=== PATIENT | female | born 1940 | race Caucasian/White ===

== ENCOUNTER 2017-09-19 16:13 | Inpatient (IN) | payer OTHER ==
[~2017-09-19] VITALS: Ht 182.9 cm; Wt 64.0 kg
[2017-09-19 17:36] LABS: HEMATOCRIT 37.5 % (36.0-46.0); HEMOGLOBIN 11.5 G/DL (11.9-15.5); MCH 26.7 PG (29.0-34.0); MCHC 30.7 G/DL (30.0-36.0); MCV 87.2 FL (83-99); PLATELET COUNT 252 K/uL (156-360); RBC DIS.WIDTH-CV 15.3 % (11.8-14.6); RBC DIS.WIDTH-SD 48.8 % (39-53); WHITE BLOOD COUNT 7.5 K/uL (4.1-10.2)
[2017-09-19 17:49] LABS: CHLORIDE 96 mEq/L (99-109); POTASSIUM 3.8 mEq/L (3.7-5.4); SODIUM 138 mEq/L (136-147)
[2017-09-19 17:51] LABS: GLUCOSE 160 mg/dL (70-99)
[2017-09-19 17:55] LABS: CREATININE 0.6 mg/dL (0.6-1.3); GFR ESTIMATE (CALCULATED) > 59 mL/min/
[2017-09-19 17:56] LABS: UREA NITROGEN (BUN) 13 mg/dL (9-23)
[2017-09-19 17:57] LABS: TROP-I INTERPRETATION NEGATIVE; TROPONIN-I < 0.01 ng/mL (0.0-0.30)
[2017-09-19] MEDS ORDERED: ATHENOL325 MG PO (22:28)
[2017-09-19] MEDS ORDERED: ALIGN10.5 MG PO (22:29)
[2017-09-19] MEDS ORDERED: XANAX0.5 MG PO (22:30)
[2017-09-19] MEDS ORDERED: BROVANA15 MCG/2 M IH (22:32)
[2017-09-19] MEDS ORDERED: PULMICORT0.5 MG/21 IH (22:34)
[2017-09-19] MEDS ORDERED: ROCEPHIN1000 MG IM (22:35)
[2017-09-19] MEDS ORDERED: FLONASE16 G1 BOTH NARES (22:38)
[2017-09-19] MEDS ORDERED: LEVALBUTEROL TA15 GM IH (22:39)
[2017-09-19] MEDS ORDERED: XYLOCAINE IJ (22:43)
[2017-09-19] MEDS ORDERED: MAGNESIUM400 M1 PO (22:44)
[2017-09-19] MEDS ORDERED: REGLAN5 MG PO (22:46)
[2017-09-19] MEDS ORDERED: MUCINEX600 MG PO (22:46)
[2017-09-19] MEDS ORDERED: SPIRIVA RESPIMAT4 GM IH (22:47)
[2017-09-19] MEDS ORDERED: TRAMADOL HCL50 MG PO (22:48)
[2017-09-19] MEDS ORDERED: WELCHOL625 MG PO (22:50)
[2017-09-19] MEDS ORDERED: NITROSTAT0.4 MG SL (22:51)
[2017-09-19] MEDS ORDERED: METOPROLOL PO (23:02)
[2017-09-20] VITALS (20 sets, daily range): BP systolic 71–145; BP diastolic 44–92
[2017-09-20 00:34] LABS: BICARBONATE 35.3 mEq/L (22-26); CARBOXY HGB 0.1 % (0-5); METHEMOGLOBIN 0 % (0-1.5); PCO2 64 mm Hg (35-45); PO2 65 mm Hg (80-100); pH 7.35 (7.35-7.45)
[2017-09-20 00:35] LABS: CONTINUOUS POS AIRWAY PRESSURE 6 cm H2O; DEVICE 840; FI02 40 %; MODE SPONT; PRES. SUPPORT 14 CM/H2O; SITE RR; TOTAL RESP RATE 23 resp/min
[2017-09-20 04:45] LABS: BASE EXCESS 9.4 mEq/L (-3 to +3); BICARBONATE 36.7 mEq/L (22-26); CARBOXY HGB 0 % (0-5); METHEMOGLOBIN 0 % (0-1.5); PCO2 65 mm Hg (35-45); PO2 62 mm Hg (80-100); pH 7.36 (7.35-7.45)
[2017-09-20 04:46] LABS: COMMENTS - BLOOD GASES C+; DEVICE NC; O2 FLOW 2 L/MIN; SITE LB; TOTAL RESP RATE 34 resp/min
[2017-09-20 06:09] LABS: HEMATOCRIT 36.9 % (36.0-46.0); HEMOGLOBIN 11.3 G/DL (11.9-15.5); MCHC 30.6 G/DL (30.0-36.0); MCV 88.3 FL (83-99); PLATELET COUNT 263 K/uL (156-360); RBC DIS.WIDTH-CV 15.4 % (11.8-14.6); RBC DIS.WIDTH-SD 49.4 % (39-53); RED BLOOD COUNT 4.18 M/uL (3.80-5.20); WHITE BLOOD COUNT 6.1 K/uL (4.1-10.2)
[2017-09-20 06:26] LABS: CHLORIDE 98 MEQ/L (99-109); CREATININE 0.4 MG/DL (0.6-1.3); GFR ESTIMATE (CALCULATED) > 59 mL/min/; GLUCOSE 133 mg/dL (70-99); POTASSIUM 3.7 MEQ/L (3.7-5.4); SODIUM 141 MEQ/L (136-147); UREA NITROGEN (BUN) 11 mg/dL (9-23)
[2017-09-20 11:52] LABS: BICARBONATE 32.5 mEq/L (22-26); CARBOXY HGB 0 % (0-5); COMMENTS - BLOOD GASES A+C+; DEVICE VENT; FI02 70 %; MECHANICAL RATE 10 resp/min; METHEMOGLOBIN 0 % (0-1.5); MODE ACVC; PCO2 63 mm Hg (35-45); PEEP 8 CM/H20; PO2 240 mm Hg (80-100); SITE LR; TIDAL VOLUME 500 ML; TOTAL RESP RATE 10 resp/min; pH 7.32 (7.35-7.45)
[2017-09-20 15:27] LABS: PHOSPHORUS 4.1 mg/dL (2.5-4.9)
[2017-09-21] VITALS (22 sets, daily range): BP systolic 0–151; BP diastolic 0–69
[2017-09-21 05:09] LABS: HEMATOCRIT 34.9 % (36.0-46.0); HEMOGLOBIN 10.5 G/DL (11.9-15.5); MCH 26.3 PG (29.0-34.0); MCHC 30.1 G/DL (30.0-36.0); MCV 87.3 FL (83-99); PLATELET COUNT 215 K/uL (156-360); RBC DIS.WIDTH-SD 48.5 % (39-53); WHITE BLOOD COUNT 5.3 K/uL (4.1-10.2)
[2017-09-21 05:27] LABS: CHLORIDE 105 mEq/L (99-109); SODIUM 142 mEq/L (136-147)
[2017-09-21 05:29] LABS: GLUCOSE 203 mg/dL (70-99)
[2017-09-21 05:33] LABS: CREATININE 0.5 mg/dL (0.6-1.3); GFR ESTIMATE (CALCULATED) > 59 mL/min/; UREA NITROGEN (BUN) 20 mg/dL (9-23)
[2017-09-21 15:34] LABS: APPEARANCE CLEAR ((CLEAR)); BILIRUBIN NEGATIVE; BLOOD NEGATIVE; COLOR YELLOW ((YELLOW)); GLUCOSE (STRIP) >=500; KETONES NEGATIVE; LEUKOCYTES NEGATIVE; NITRITE NEGATIVE; PROTEIN (STRIP) 30; SPECIFIC GRAVITY 1.029 (1.000-1.030); UCUL ADDED? NO; UROBILINOGEN 0.2 MG/DL (0.2-1.0)
[2017-09-22] VITALS (20 sets, daily range): BP systolic 100–170; BP diastolic 40–111
[2017-09-22 05:26] LABS: BASE EXCESS 6.7 mEq/L (-3 to +3); BICARBONATE 33.7 mEq/L (22-26); CARBOXY HGB 0 % (0-5); METHEMOGLOBIN 0 % (0-1.5); PCO2 61 mm Hg (35-45); pH 7.35 (7.35-7.45)
[2017-09-22 05:27] LABS: COMMENTS - BLOOD GASES A+C+; DEVICE VENT; FI02 40 %; MODE SPONT; PEEP 7 CM/H20; PO2 90 mm Hg (80-100); PRES. SUPPORT 10 CM/H2O; SITE LRADIAL; TOTAL RESP RATE 17 resp/min
[2017-09-22 06:41] LABS: CHLORIDE 108 MEQ/L (99-109); CREATININE 0.3 MG/DL (0.6-1.3); GFR ESTIMATE (CALCULATED) > 59 mL/min/; GLUCOSE 267 mg/dL (70-99); POTASSIUM 3.9 MEQ/L (3.7-5.4); SODIUM 145 MEQ/L (136-147); UREA NITROGEN (BUN) 23 mg/dL (9-23)
[2017-09-23] VITALS (23 sets, daily range): BP systolic 0–179; BP diastolic 0–109
[2017-09-23 05:47] LABS: HEMATOCRIT 38.9 % (36.0-46.0); HEMOGLOBIN 11.5 G/DL (11.9-15.5); MCHC 29.6 G/DL (30.0-36.0); MCV 87.8 FL (83-99); PLATELET COUNT 256 K/uL (156-360); RBC DIS.WIDTH-CV 15.1 % (11.8-14.6); RBC DIS.WIDTH-SD 48.2 % (39-53); RED BLOOD COUNT 4.43 M/uL (3.80-5.20); WHITE BLOOD COUNT 13.2 K/uL (4.1-10.2)
[2017-09-23 06:18] LABS: CHLORIDE 98 MEQ/L (99-109); CREATININE 0.3 MG/DL (0.6-1.3); GFR ESTIMATE (CALCULATED) > 59 mL/min/; GLUCOSE 215 mg/dL (70-99); POTASSIUM 3.6 MEQ/L (3.7-5.4); SODIUM 144 MEQ/L (136-147); UREA NITROGEN (BUN) 12 mg/dL (9-23)
[2017-09-23 06:32] LABS: BASOPHIL (%) 0.2 % (0-1); EOSINOPHIL (%) 0 % (0-5); IMMATURE GRANULOCYTE (%) 0.7 % (0.0-0.7); LYMPHOCYTE (%) 7.3 % (15-42); MONOCYTE (%) 8.5 % (3-12); MONOCYTE COUNT 1.1 K/uL (0-0.8); NEUTROPHIL (%) 83.3 % (45-76)
[2017-09-24] VITALS (22 sets, daily range): BP systolic 123–176; BP diastolic 47–88
[2017-09-24 06:07] LABS: CARBON DIOXIDE (BICARBONATE) > 40.0 MEQ/L (20-31); CHLORIDE 98 MEQ/L (99-109); CREATININE 0.2 MG/DL (0.6-1.3); GFR ESTIMATE (CALCULATED) > 59 mL/min/; GLUCOSE 104 mg/dL (70-99); MAGNESIUM 1.8 mg/dl (1.3-2.7); SODIUM 145 MEQ/L (136-147); UREA NITROGEN (BUN) 10 mg/dL (9-23)
[2017-09-25] VITALS (19 sets, daily range): BP systolic 107–171; BP diastolic 54–86
[2017-09-26] VITALS (22 sets, daily range): BP systolic 97–170; BP diastolic 40–98
[2017-09-26 08:15] LABS: BASE EXCESS 17.6 mEq/L (-3 to +3); BICARBONATE 46.1 mEq/L (22-26); CARBOXY HGB 0.1 % (0-5); COMMENTS - BLOOD GASES A+C+; DEVICE HFNC; METHEMOGLOBIN 0 % (0-1.5); O2 FLOW 10 L/MIN; PCO2 78 mm Hg (35-45); PO2 144 mm Hg (80-100); SITE RR; TOTAL RESP RATE 18 resp/min; pH 7.38 (7.35-7.45)
[2017-09-26 13:02] LABS: HEMATOCRIT 38.2 % (36.0-46.0); HEMOGLOBIN 11.6 G/DL (11.9-15.5); MCH 26.1 PG (29.0-34.0); MCHC 30.4 G/DL (30.0-36.0); RBC DIS.WIDTH-CV 14.7 % (11.8-14.6); RBC DIS.WIDTH-SD 46.5 % (39-53); RED BLOOD COUNT 4.44 M/uL (3.80-5.20); WHITE BLOOD COUNT 17.4 K/uL (4.1-10.2)
[2017-09-26 13:08] LABS: PLATELET COUNT 334 K/uL (156-360)
[2017-09-26 13:59] LABS: CHLORIDE 93 MEQ/L (99-109); CREATININE 0.2 MG/DL (0.6-1.3); GFR ESTIMATE (CALCULATED) > 59 mL/min/; GLUCOSE 83 mg/dL (70-99); POTASSIUM 3.5 MEQ/L (3.7-5.4); SODIUM 140 MEQ/L (136-147); UREA NITROGEN (BUN) 15 mg/dL (9-23)
[2017-09-27] VITALS (18 sets, daily range): BP systolic 126–167; BP diastolic 62–112
[2017-09-27 04:46] LABS: HEMATOCRIT 36.9 % (36.0-46.0); HEMOGLOBIN 11.6 G/DL (11.9-15.5); MCH 26.8 PG (29.0-34.0); MCHC 31.4 G/DL (30.0-36.0); MCV 85.2 FL (83-99); PLATELET COUNT 282 K/uL (156-360); RBC DIS.WIDTH-CV 14.6 % (11.8-14.6); RBC DIS.WIDTH-SD 45.6 % (39-53); RED BLOOD COUNT 4.33 M/uL (3.80-5.20); WHITE BLOOD COUNT 10.4 K/uL (4.1-10.2)
[2017-09-27 04:58] LABS: CHLORIDE 99 mEq/L (99-109); SODIUM 144 mEq/L (136-147)
[2017-09-27 05:00] LABS: GLUCOSE 115 mg/dL (70-99)
[2017-09-27 05:03] LABS: CREATININE 0.5 mg/dL (0.6-1.3); GFR ESTIMATE (CALCULATED) > 59 mL/min/
[2017-09-27 05:04] LABS: UREA NITROGEN (BUN) 17 mg/dL (9-23)
[2017-09-27 05:56] LABS: APPEARANCE CLEAR ((CLEAR)); BILIRUBIN NEGATIVE; BLOOD NEGATIVE; COLOR YELLOW ((YELLOW)); GLUCOSE (STRIP) NEGATIVE; KETONES 80; LEUKOCYTES NEGATIVE; NITRITE NEGATIVE; PROTEIN (STRIP) 30; SPECIFIC GRAVITY 1.019 (1.000-1.030); UROBILINOGEN 0.2 MG/DL (0.2-1.0)
[2017-09-27 12:43] LABS: BASE EXCESS 14.1 mEq/L (-3 to +3); BICARBONATE 41.2 mEq/L (22-26); CARBOXY HGB 0.4 % (0-5); COMMENTS - BLOOD GASES A+C+; DEVICE HFNC; METHEMOGLOBIN 0 % (0-1.5); O2 FLOW 8 L/MIN; PCO2 65 mm Hg (35-45); PO2 83 mm Hg (80-100); SITE LR; TOTAL RESP RATE 28 resp/min; pH 7.41 (7.35-7.45)
[2017-09-28] VITALS (21 sets, daily range): BP systolic 99–182; BP diastolic 43–121
[2017-09-28 07:00] LABS: BASOPHIL (%) 0.1 % (0-1); EOSINOPHIL (%) 0.1 % (0-5); HEMATOCRIT 40.6 % (36.0-46.0); HEMOGLOBIN 12.7 G/DL (11.9-15.5); IMMATURE GRANULOCYTE (%) 0.8 % (0.0-0.7); LYMPHOCYTE (%) 20.8 % (15-42); LYMPHOCYTE COUNT 2.9 K/uL (1.0-2.8); MCH 26.5 PG (29.0-34.0); MCHC 31.3 G/DL (30.0-36.0); MCV 84.8 FL (83-99); MONOCYTE (%) 11.2 % (3-12); MONOCYTE COUNT 1.6 K/uL (0-0.8); NEUTROPHIL COUNT 9.4 K/uL (1.8-6.4); PLATELET COUNT 361 K/uL (156-360); RBC DIS.WIDTH-CV 14.8 % (11.8-14.6); RBC DIS.WIDTH-SD 45.3 % (39-53); RED BLOOD COUNT 4.79 M/uL (3.80-5.20)
[2017-09-28 07:33] LABS: ALBUMIN 3.9 G/DL (3.2-4.8); ALKALINE PHOSPHATASE 41 IU/L (3-129); ALT (GPT) 54 IU/L (3-49); AST (GOT) 33 IU/L (2-34); CHLORIDE 93 MEQ/L (99-109); CREATININE 0.3 MG/DL (0.6-1.3); GFR ESTIMATE (CALCULATED) > 59 mL/min/; GLUCOSE 109 mg/dL (70-99); MAGNESIUM 1.6 mg/dl (1.3-2.7); POTASSIUM 3.8 MEQ/L (3.7-5.4); SODIUM 138 MEQ/L (136-147); TOTAL BILIRUBIN 0.7 MG/DL (0.0-1.0); TOTAL PROTEIN 6.6 G/DL (6.4-8.3); UREA NITROGEN (BUN) 11 mg/dL (9-23)
[2017-09-28 07:35] LABS: PHOSPHORUS 2.4 mg/dL (2.5-4.9)
[2017-09-29] VITALS (15 sets, daily range): BP systolic 109–155; BP diastolic 49–101
[2017-09-29 07:26] LABS: BASOPHIL (%) 0.1 % (0-1); EOSINOPHIL (%) 0 % (0-5); HEMATOCRIT 34.8 % (36.0-46.0); HEMOGLOBIN 10.8 G/DL (11.9-15.5); IMMATURE GRANULOCYTE (%) 0.8 % (0.0-0.7); LYMPHOCYTE (%) 16.7 % (15-42); LYMPHOCYTE COUNT 1.7 K/uL (1.0-2.8); MCH 26.7 PG (29.0-34.0); MCV 85.9 FL (83-99); MONOCYTE (%) 11.7 % (3-12); MONOCYTE COUNT 1.2 K/uL (0-0.8); NEUTROPHIL (%) 70.7 % (45-76); NEUTROPHIL COUNT 7.4 K/uL (1.8-6.4); PLATELET COUNT 305 K/uL (156-360); RBC DIS.WIDTH-CV 15.1 % (11.8-14.6); RBC DIS.WIDTH-SD 47.3 % (39-53); RED BLOOD COUNT 4.05 M/uL (3.80-5.20); WHITE BLOOD COUNT 10.4 K/uL (4.1-10.2)
[2017-09-29 07:59] LABS: ALBUMIN 3.2 G/DL (3.2-4.8); ALKALINE PHOSPHATASE 32 IU/L (3-129); ALT (GPT) 37 IU/L (3-49); AST (GOT) 19 IU/L (2-34); CHLORIDE 102 MEQ/L (99-109); CREATININE 0.3 MG/DL (0.6-1.3); GFR ESTIMATE (CALCULATED) > 59 mL/min/; GLUCOSE 162 mg/dL (70-99); MAGNESIUM 1.5 mg/dl (1.3-2.7); POTASSIUM 4.2 MEQ/L (3.7-5.4); SODIUM 139 MEQ/L (136-147); UREA NITROGEN (BUN) 9 mg/dL (9-23)
[2017-09-29 08:18] LABS: PHOSPHORUS 3.9 mg/dL (2.5-4.9); TOTAL BILIRUBIN 0.5 MG/DL (0.0-1.0); TOTAL PROTEIN 5.2 G/DL (6.4-8.3)
[2017-09-30] VITALS (17 sets, daily range): BP systolic 81–166; BP diastolic 48–88
[2017-09-30 06:14] LABS: BASOPHIL (%) 0.1 % (0-1); EOSINOPHIL (%) 0 % (0-5); HEMATOCRIT 35.5 % (36.0-46.0); HEMOGLOBIN 11.1 G/DL (11.9-15.5); IMMATURE GRANULOCYTE (%) 0.6 % (0.0-0.7); LYMPHOCYTE (%) 16.5 % (15-42); MCH 25.7 PG (29.0-34.0); MCHC 31.3 G/DL (30.0-36.0); MCV 82.2 FL (83-99); MONOCYTE COUNT 1.2 K/uL (0-0.8); NEUTROPHIL (%) 72.8 % (45-76); NEUTROPHIL COUNT 8.7 K/uL (1.8-6.4); PLATELET COUNT 386 K/uL (156-360); RBC DIS.WIDTH-CV 15.2 % (11.8-14.6); RBC DIS.WIDTH-SD 45.1 % (39-53); RED BLOOD COUNT 4.32 M/uL (3.80-5.20)
[2017-09-30 06:51] LABS: ALBUMIN 3.6 G/DL (3.2-4.8); ALKALINE PHOSPHATASE 36 IU/L (3-129); ALT (GPT) 37 IU/L (3-49); AST (GOT) 21 IU/L (2-34); CHLORIDE 98 MEQ/L (99-109); CREATININE 0.3 MG/DL (0.6-1.3); GFR ESTIMATE (CALCULATED) > 59 mL/min/; MAGNESIUM 1.4 mg/dl (1.3-2.7); POTASSIUM 3.8 MEQ/L (3.7-5.4); SODIUM 138 MEQ/L (136-147); TOTAL PROTEIN 5.7 G/DL (6.4-8.3); UREA NITROGEN (BUN) 9 mg/dL (9-23)
[2017-09-30 07:00] LABS: GLUCOSE 103 mg/dL (70-99)
[2017-09-30 07:01] LABS: TOTAL BILIRUBIN 0.7 MG/DL (0.0-1.0)
[2017-09-30] MEDS ORDERED: PENTASA250 MG PO (15:23)
[2017-10-01] VITALS (15 sets, daily range): BP systolic 105–156; BP diastolic 40–74
[2017-10-01 06:47] LABS: BASOPHIL (%) 0.1 % (0-1); EOSINOPHIL (%) 0 % (0-5); HEMATOCRIT 33.9 % (36.0-46.0); HEMOGLOBIN 10.8 G/DL (11.9-15.5); IMMATURE GRANULOCYTE (%) 0.7 % (0.0-0.7); LYMPHOCYTE (%) 18.3 % (15-42); LYMPHOCYTE COUNT 2.3 K/uL (1.0-2.8); MCH 26.7 PG (29.0-34.0); MCHC 31.9 G/DL (30.0-36.0); MCV 83.7 FL (83-99); MONOCYTE (%) 13.3 % (3-12); MONOCYTE COUNT 1.7 K/uL (0-0.8); NEUTROPHIL (%) 67.6 % (45-76); NEUTROPHIL COUNT 8.4 K/uL (1.8-6.4); PLATELET COUNT 324 K/uL (156-360); RBC DIS.WIDTH-CV 15.9 % (11.8-14.6); RBC DIS.WIDTH-SD 47.8 % (39-53); RED BLOOD COUNT 4.05 M/uL (3.80-5.20); WHITE BLOOD COUNT 12.4 K/uL (4.1-10.2)
[2017-10-01 07:09] LABS: ALBUMIN 3.3 G/DL (3.2-4.8); ALKALINE PHOSPHATASE 33 IU/L (3-129); ALT (GPT) 31 IU/L (3-49); AST (GOT) 18 IU/L (2-34); CHLORIDE 101 MEQ/L (99-109); CREATININE 0.3 MG/DL (0.6-1.3); GFR ESTIMATE (CALCULATED) > 59 mL/min/; GLUCOSE 86 mg/dL (70-99); MAGNESIUM 1.4 mg/dl (1.3-2.7); PHOSPHORUS 3.5 mg/dL (2.5-4.9); POTASSIUM 3.7 MEQ/L (3.7-5.4); SODIUM 140 MEQ/L (136-147); TOTAL BILIRUBIN 0.7 MG/DL (0.0-1.0); TOTAL PROTEIN 5.5 G/DL (6.4-8.3); UREA NITROGEN (BUN) 8 mg/dL (9-23)
[2017-10-02] VITALS (7 sets, daily range): BP systolic 108–152; BP diastolic 53–68
[2017-10-02 06:46] LABS: BASOPHIL (%) 0.1 % (0-1); EOSINOPHIL (%) 0 % (0-5); HEMATOCRIT 35.3 % (36.0-46.0); HEMOGLOBIN 11.1 G/DL (11.9-15.5); IMMATURE GRANULOCYTE (%) 0.5 % (0.0-0.7); LYMPHOCYTE (%) 12.5 % (15-42); LYMPHOCYTE COUNT 1.7 K/uL (1.0-2.8); MCH 26.2 PG (29.0-34.0); MCHC 31.4 G/DL (30.0-36.0); MCV 83.5 FL (83-99); MONOCYTE (%) 12.2 % (3-12); MONOCYTE COUNT 1.6 K/uL (0-0.8); NEUTROPHIL (%) 74.7 % (45-76); PLATELET COUNT 353 K/uL (156-360); RBC DIS.WIDTH-CV 16.1 % (11.8-14.6); RBC DIS.WIDTH-SD 48.1 % (39-53); RED BLOOD COUNT 4.23 M/uL (3.80-5.20); WHITE BLOOD COUNT 13.3 K/uL (4.1-10.2)
[2017-10-02 07:15] LABS: ALBUMIN 3.4 G/DL (3.2-4.8); ALKALINE PHOSPHATASE 36 IU/L (3-129); ALT (GPT) 24 IU/L (3-49); AST (GOT) 10 IU/L (2-34); CHLORIDE 101 MEQ/L (99-109); CREATININE 0.3 MG/DL (0.6-1.3); GFR ESTIMATE (CALCULATED) > 59 mL/min/; PHOSPHORUS 4.1 mg/dL (2.5-4.9); POTASSIUM 3.7 MEQ/L (3.7-5.4); SODIUM 140 MEQ/L (136-147); TOTAL BILIRUBIN 0.7 MG/DL (0.0-1.0); TOTAL PROTEIN 5.5 G/DL (6.4-8.3); UREA NITROGEN (BUN) 11 mg/dL (9-23)
[2017-10-02 07:16] LABS: GLUCOSE 186 mg/dL (70-99); MAGNESIUM 1.8 mg/dl (1.3-2.7)
[2017-10-03] VITALS (7 sets, daily range): BP systolic 110–133; BP diastolic 50–68
[2017-10-03 10:05] LABS: HEMATOCRIT 35.1 % (36.0-46.0); HEMOGLOBIN 11.3 G/DL (11.9-15.5); MCH 27.6 PG (29.0-34.0); MCHC 32.2 G/DL (30.0-36.0); MCV 85.6 FL (83-99); PLATELET COUNT 302 K/uL (156-360); RBC DIS.WIDTH-CV 16.5 % (11.8-14.6); WHITE BLOOD COUNT 18.1 K/uL (4.1-10.2)
[2017-10-03 10:33] LABS: CHLORIDE 100 mEq/L (99-109); POTASSIUM 3.4 mEq/L (3.7-5.4); SODIUM 140 mEq/L (136-147)
[2017-10-03 10:34] LABS: GLUCOSE 231 mg/dL (70-99)
[2017-10-03 10:38] LABS: CREATININE 0.5 mg/dL (0.6-1.3); GFR ESTIMATE (CALCULATED) > 59 mL/min/
[2017-10-03 10:41] LABS: UREA NITROGEN (BUN) 23 mg/dL (9-23)
[2017-10-04 03:00] VITALS: BP 138/56
[2017-10-04 05:26] LABS: BASOPHIL (%) 0.2 % (0-1); EOSINOPHIL (%) 1.9 % (0-5); EOSINOPHIL COUNT 0.3 K/uL (0-0.3); HEMATOCRIT 35.1 % (36.0-46.0); HEMOGLOBIN 10.9 G/DL (11.9-15.5); IMMATURE GRANULOCYTE (%) 0.5 % (0.0-0.7); LYMPHOCYTE (%) 23.9 % (15-42); LYMPHOCYTE COUNT 3.1 K/uL (1.0-2.8); MCH 26.2 PG (29.0-34.0); MCHC 31.1 G/DL (30.0-36.0); MCV 84.4 FL (83-99); MONOCYTE (%) 11.8 % (3-12); MONOCYTE COUNT 1.5 K/uL (0-0.8); NEUTROPHIL (%) 61.7 % (45-76); PLATELET COUNT 317 K/uL (156-360); RBC DIS.WIDTH-CV 16.5 % (11.8-14.6); RBC DIS.WIDTH-SD 49.9 % (39-53); RED BLOOD COUNT 4.16 M/uL (3.80-5.20)
[2017-10-04 05:57] LABS: CHLORIDE 100 MEQ/L (99-109); CREATININE 0.3 MG/DL (0.6-1.3); GFR ESTIMATE (CALCULATED) > 59 mL/min/; GLUCOSE 170 mg/dL (70-99); POTASSIUM 3.4 MEQ/L (3.7-5.4); SODIUM 140 MEQ/L (136-147); UREA NITROGEN (BUN) 14 mg/dL (9-23)
[2017-10-04 07:38] VITALS: BP 130/59
[2017-10-04 11:13] LABS: BASE EXCESS 8.4 mEq/L (-3 to +3); BICARBONATE 33.9 mEq/L (22-26); CARBOXY HGB 0.6 % (0-5); METHEMOGLOBIN 0 % (0-1.5); PO2 80 mm Hg (80-100); pH 7.43 (7.35-7.45)
[2017-10-04 11:14] VITALS: BP 126/52
[2017-10-04 11:14] LABS: COMMENTS - BLOOD GASES A+C+; DEVICE NC; O2 FLOW 3 L/MIN; PCO2 51 mm Hg (35-45); SITE LR
[2017-10-04 15:45] VITALS: BP 139/68
[2017-10-04 19:00] VITALS: BP 141/64
[2017-10-04 22:30] VITALS: BP 123/49
[2017-10-05 03:00] VITALS: BP 111/58
[2017-10-05 05:45] LABS: CHLORIDE 102 MEQ/L (99-109); CREATININE 0.3 MG/DL (0.6-1.3); GFR ESTIMATE (CALCULATED) > 59 mL/min/; SODIUM 142 MEQ/L (136-147); UREA NITROGEN (BUN) 14 mg/dL (9-23)
[2017-10-05 05:47] LABS: GLUCOSE 107 mg/dL (70-99); POTASSIUM 4.2 MEQ/L (3.7-5.4)
[2017-10-05 07:28] VITALS: BP 131/49
[2017-10-05 09:10] LABS: BASOPHIL (%) 0.2 % (0-1); EOSINOPHIL (%) 1.4 % (0-5); EOSINOPHIL COUNT 0.2 K/uL (0-0.3); HEMATOCRIT 34.9 % (36.0-46.0); IMMATURE GRANULOCYTE (%) 0.6 % (0.0-0.7); LYMPHOCYTE (%) 12.6 % (15-42); MCH 27.2 PG (29.0-34.0); MCHC 31.5 G/DL (30.0-36.0); MCV 86.4 FL (83-99); MONOCYTE (%) 12.4 % (3-12); NEUTROPHIL (%) 72.8 % (45-76); NEUTROPHIL COUNT 11.7 K/uL (1.8-6.4); PLATELET COUNT 273 K/uL (156-360); RBC DIS.WIDTH-CV 16.8 % (11.8-14.6); RBC DIS.WIDTH-SD 51.6 % (39-53); RED BLOOD COUNT 4.04 M/uL (3.80-5.20)
[2017-10-05 11:00] VITALS: BP 131/56
[2017-10-05 16:00] VITALS: BP 129/60; BP 19/60
[2017-10-05 19:30] VITALS: BP 126/55
[2017-10-05 23:00] VITALS: BP 116/55
[2017-10-06 03:30] VITALS: BP 128/60
[2017-10-06 08:00] VITALS: BP 105/61
[2017-10-06 09:07] LABS: HEMATOCRIT 34.1 % (36.0-46.0); HEMOGLOBIN 10.7 G/DL (11.9-15.5); MCH 27.2 PG (29.0-34.0); MCHC 31.4 G/DL (30.0-36.0); MCV 86.8 FL (83-99); PLATELET COUNT 269 K/uL (156-360); RBC DIS.WIDTH-CV 16.6 % (11.8-14.6); RBC DIS.WIDTH-SD 51.7 % (39-53); RED BLOOD COUNT 3.93 M/uL (3.80-5.20); WHITE BLOOD COUNT 13.8 K/uL (4.1-10.2)
[2017-10-06 09:35] LABS: CHLORIDE 98 MEQ/L (99-109); CREATININE 0.3 MG/DL (0.6-1.3); GFR ESTIMATE (CALCULATED) > 59 mL/min/; GLUCOSE 119 mg/dL (70-99); POTASSIUM 3.5 MEQ/L (3.7-5.4); SODIUM 138 MEQ/L (136-147); UREA NITROGEN (BUN) 17 mg/dL (9-23)
[2017-10-06 11:33] VITALS: BP 126/60
[2017-10-06] MEDS ORDERED: XANAX0.5 MG PO (12:07)
[2017-10-06] MEDS ORDERED: TRAMADOL HCL50 MG PO (12:07)
[2017-10-06] MEDS ORDERED: LOPRESSOR25 MG PO (12:07)
[2017-10-06] MEDS ORDERED: PREDNISONE20 MG PO (12:07)
[2017-10-06] MEDS ORDERED: FAMOTIDINE20 MG PO (12:07)
[2017-10-06] MEDS ORDERED: PREDNISONE10 MG PO (13:17)
== END 2017-10-06 15:25 | DRG 208 ==
LOC: EME 16:13 → 4WEST 21:53 → EDOF 21:53 → ENRESERV 22:09 → CANRESERV 09-20 00:09 → EDOF 09-20 01:20 → ENRESERV 09-20 01:22 → 4WEST 09-20 04:09 → ENRESERV 10-01 22:25 → 4EAST 10-02 01:53
PROVIDERS: Emergency Medicine Emergency Medical Services; Hospitalist; Internal Medicine; Internal Medicine Critical Care Medicine; Surgery
DX: J96.21 Acute and chronic respiratory failure with hypoxia (principal); G93.41 Metabolic encephalopathy; J44.1 Chronic obstructive pulmonary disease with (acute) exacerbation; J44.0 Chronic obstructive pulmonary disease with (acute) lower respiratory infection; N39.0 Urinary tract infection, site not specified; K51.90 Ulcerative colitis, unspecified, without complications; I69.359 Hemiplegia and hemiparesis following cerebral infarction affecting unspecified side; E87.4 Mixed disorder of acid-base balance; I50.32 Chronic diastolic (congestive) heart failure; I48.92 Unspecified atrial flutter; F05 Delirium due to known physiological condition; J10.1 Influenza due to other identified influenza virus with other respiratory manifestations; J96.22 Acute and chronic respiratory failure with hypercapnia; I35.2 Nonrheumatic aortic (valve) stenosis with insufficiency; G47.33 Obstructive sleep apnea (adult) (pediatric); J20.9 Acute bronchitis, unspecified; E66.9 Obesity, unspecified; Z96.651 Presence of right artificial knee joint; Z99.81 Dependence on supplemental oxygen; Z90.710 Acquired absence of both cervix and uterus; Z87.891 Personal history of nicotine dependence; Z90.49 Acquired absence of other specified parts of digestive tract; Z88.0 Allergy status to penicillin; Z88.5 Allergy status to narcotic agent; Z88.6 Allergy status to analgesic agent; Z68.33 Body mass index [BMI] 33.0-33.9, adult; Z78.1 Physical restraint status
CPT/HCPCS: 31720; 36600; 43752; 70450; 71045; 71046; 71275; 74018; 74230; 80048; 80053; 81003; 82803; 82948; 83735; 83880; 84100; 84484; 85025; 85027; 87070; 87205; 87449; 87493; 87502; 87641; 92526 GN; 92610 GN; 92611 GN; 93005; 93306; 94002; 94003; 94640; 94640 76; 94644; 94645; 94660; 94667; 94668; 94760; 94799; 95819; 97530 GO; 97530 GP; 99202; 99281; 99285; A6214; C1751; C1753; J0360; J0692; J1100; J1630; J1644; J1650; J2060; J2250; J2704; J2920; J2930; J3010; J3475; J3480; J7030; J7040; J7050; J7512; J7644; S0028

== ENCOUNTER 2017-11-19 02:45 | Emergency (ER) | payer OTHER ==
[~2017-11-19] VITALS: Ht 160 cm; Wt 75.0 kg
[~2017-11-19 02:45] MED LIST: ALIGN10.5 MG PO; ATHENOL325 MG PO; BROVANA15 MCG/2 M IH; FAMOTIDINE20 MG PO; FLONASE16 G1 BOTH NARES; LEVALBUTEROL TA15 GM IH; LOPRESSOR25 MG PO; MAGNESIUM400 M1 PO; METOPROLOL PO; MUCINEX600 MG PO; NITROSTAT0.4 MG SL; PENTASA250 MG PO; PREDNISONE10 MG PO; PREDNISONE20 MG PO; PULMICORT0.5 MG/21 IH; REGLAN5 MG PO; ROCEPHIN1000 MG IM; SPIRIVA RESPIMAT4 GM IH; TRAMADOL HCL50 MG PO; WELCHOL625 MG PO; XANAX0.5 MG PO; XYLOCAINE IJ
[2017-11-19 04:39] VITALS: BP 130/63
== END 2017-11-19 04:42 | disposition home or self-care (01) ==
LOC: EME → EDBD 02:45 → EME 04:42
DX: S00.03XA Contusion of scalp, initial encounter (principal); S83.91XA Sprain of unspecified site of right knee, initial encounter; W06.XXXA Fall from bed, initial encounter; Z96.651 Presence of right artificial knee joint; J44.9 Chronic obstructive pulmonary disease, unspecified; Z86.73 Personal history of transient ischemic attack (TIA), and cerebral infarction without residual deficits; Z99.81 Dependence on supplemental oxygen
CPT/HCPCS: 70450; 73564; 99281; 99284

== ENCOUNTER 2018-02-05 20:06 | Inpatient (IN) | payer OTHER ==
[~2018-02-05] VITALS: Ht 162.6 cm; Wt 75.1 kg
[2018-02-05 21:53] LABS: HEMATOCRIT 33.3 % (36.0-46.0); HEMOGLOBIN 10.7 G/DL (11.9-15.5); MCH 27.9 PG (29.0-34.0); MCHC 32.1 G/DL (30.0-36.0); MCV 86.7 FL (83-99); PLATELET COUNT 227 K/uL (156-360); RBC DIS.WIDTH-CV 14.5 % (11.8-14.6); RBC DIS.WIDTH-SD 45.3 % (39-53); RED BLOOD COUNT 3.84 M/uL (3.80-5.20); WHITE BLOOD COUNT 8.8 K/uL (4.1-10.2)
[2018-02-05 22:03] LABS: CHLORIDE 100 mEq/L (99-109); POTASSIUM 4.3 mEq/L (3.7-5.4); SODIUM 139 mEq/L (136-147)
[2018-02-05 22:04] LABS: MAGNESIUM 2.1 mg/dL (1.3-2.7)
[2018-02-05 22:06] LABS: GLUCOSE 131 mg/dL (70-99); TOTAL PROTEIN 6.9 g/dL (6.4-8.3)
[2018-02-05 22:08] LABS: TOTAL BILIRUBIN 0.2 mg/dL (0.0-1.0)
[2018-02-05 22:09] LABS: ALKALINE PHOSPHATASE 58 IU/L (3-129); CREATININE 0.6 mg/dL (0.6-1.3); GFR ESTIMATE (CALCULATED) > 59 mL/min/
[2018-02-05 22:10] LABS: UREA NITROGEN (BUN) 19 mg/dL (9-23)
[2018-02-05 22:11] LABS: AST (GOT) 17 IU/L (2-34)
[2018-02-05 22:12] LABS: ALT (GPT) 8 IU/L (3-49)
[2018-02-05 22:18] LABS: TROP-I INTERPRETATION NEGATIVE; TROPONIN-I 0.03 ng/mL (0.0-0.30)
[2018-02-05 22:56] LABS: APPEARANCE CLEAR ((CLEAR)); BILIRUBIN NEGATIVE; BLOOD NEGATIVE; COLOR YELLOW ((YELLOW)); GLUCOSE (STRIP) NEGATIVE; KETONES NEGATIVE; LEUKOCYTES MODERATE; NITRITE NEGATIVE; PROTEIN (STRIP) NEGATIVE; SPECIFIC GRAVITY 1.018 (1.000-1.030); UROBILINOGEN 0.2 MG/DL (0.2-1.0)
[2018-02-05 23:02] LABS: BACTERIA NONE SEEN /HPF; EPITHELIAL CELLS RARE /HPF; MUCUS NONE SEEN /LPF; RED BLOOD CELLS 0-5 /HPF (0-5); UCUL ADDED? YES; WHITE BLOOD CELLS 15-20 /HPF (0-5)
[2018-02-05] MEDS ORDERED: ATORVASTATIN CA20 MG PO (23:56)
[2018-02-05] MEDS ORDERED: TYLENOL REGULA325 MG PO (23:56)
[2018-02-05] MEDS ORDERED: IRON325 M1 PO (23:57)
[2018-02-05] MEDS ORDERED: PLAVIX75 MG PO (23:57)
[2018-02-05] MEDS ORDERED: VITAMIN D31000 UNIT PO (23:58)
[2018-02-05] MEDS ORDERED: ASACOL HD800 MG PO (23:58)
[2018-02-05] MEDS ORDERED: TRAMADOL HCL50 MG PO (23:59)
[2018-02-06 04:09] VITALS: BP 138/57
[2018-02-06 06:39] LABS: HEMATOCRIT 32.2 % (36.0-46.0); MCH 27.3 PG (29.0-34.0); MCHC 31.1 G/DL (30.0-36.0); PLATELET COUNT 225 K/uL (156-360); RBC DIS.WIDTH-CV 14.5 % (11.8-14.6); RBC DIS.WIDTH-SD 46.7 % (39-53); RED BLOOD COUNT 3.66 M/uL (3.80-5.20); WHITE BLOOD COUNT 8.6 K/uL (4.1-10.2)
[2018-02-06 06:50] VITALS: BP 139/63
[2018-02-06 07:06] LABS: CHLORIDE 99 MEQ/L (99-109); CREATININE 0.4 MG/DL (0.6-1.3); GFR ESTIMATE (CALCULATED) > 59 mL/min/; GLUCOSE 153 mg/dL (70-99); POTASSIUM 3.8 MEQ/L (3.7-5.4); SODIUM 140 MEQ/L (136-147); UREA NITROGEN (BUN) 16 mg/dL (9-23)
[2018-02-06 10:40] VITALS: BP 148/68
[2018-02-06 15:40] VITALS: BP 131/61
[2018-02-06 19:31] VITALS: BP 134/66
[2018-02-06 23:37] VITALS: BP 148/66
[2018-02-07 03:41] VITALS: BP 136/60
[2018-02-07 07:17] VITALS: BP 135/60
[2018-02-07 11:50] VITALS: BP 130/60
== END 2018-02-07 14:25 | disposition home or self-care (01) | DRG 190 ==
LOC: EME → EDBD 20:06 → EME 20:06 → EDOF 02-06 02:04 → 5EAST 02-06 02:04 → ENRESERV 02-06 02:12 → 5EAST 02-06 03:39
PROVIDERS: Emergency Medicine; Family Medicine
DX: J44.1 Chronic obstructive pulmonary disease with (acute) exacerbation (principal); R07.9 Chest pain, unspecified; J96.22 Acute and chronic respiratory failure with hypercapnia; I11.0 Hypertensive heart disease with heart failure; N39.0 Urinary tract infection, site not specified; L03.116 Cellulitis of left lower limb; L03.115 Cellulitis of right lower limb; E78.5 Hyperlipidemia, unspecified; E11.9 Type 2 diabetes mellitus without complications; I50.9 Heart failure, unspecified; Z96.651 Presence of right artificial knee joint; J96.21 Acute and chronic respiratory failure with hypoxia; I69.351 Hemiplegia and hemiparesis following cerebral infarction affecting right dominant side; Z87.891 Personal history of nicotine dependence; Z90.49 Acquired absence of other specified parts of digestive tract; Z90.710 Acquired absence of both cervix and uterus; Z95.0 Presence of cardiac pacemaker; Z95.2 Presence of prosthetic heart valve; Z88.0 Allergy status to penicillin; Z99.81 Dependence on supplemental oxygen
CPT/HCPCS: 71046; 80048; 80053; 81003; 83605; 83735; 83880 GA; 84484; 85027; 87040; 87077; 87086; 87186; 93005; 94640; 94760; 94799; 99281; 99285; J0696; J2930